=== PATIENT | female | born 1980 | race Caucasian/White ===

== ENCOUNTER → 2021-02-26 | Outpatient (CLI) | payer OTHER ==
--- NOTE | 2021-02-26 16:49 | XR ---
Right shoulder HISTORY: M25.511 PAIN IN RIGHT SHOULDER 3 views of the right shoulder Bone mineralization, joint spaces and alignment are maintained. IMPRESSION: Normal right shoulder.
== END | disposition home or self-care (01) ==
LOC: RADXRMAIN 14:37
PROVIDERS: ATTEND Family Medicine
DX: M25.511 Pain in right shoulder (principal)

== ENCOUNTER → 2021-05-16 | Outpatient (CLI) | payer OTHER ==
--- NOTE | 2021-05-16 12:50 | US ---
EXAMINATION TYPE: US pelvic complete DATE OF EXAM: 05/16/2021 COMPARISON: NONE CLINICAL HISTORY: N81.4 UTEROVAGINAL PROLAPSE, UNSPECIFIED. Pt states h/o prolapsed uterus, pt curren tly has pessary ring in place TECHNIQUE: Transabdominal (TA). Transabdominal sonographic images of the pelvis were acquired. Date of LMP: 05/09/2021 EXAM MEASUREMENTS: Uterus: 9.8 x 4.8 x 5.3 cm Endometrial Stripe: 0.8 cm Right Ovary: 2.8 x 2.5 x 2.4 cm Left Ovary: 2.2 x 1.9 x 1.9 cm 1. Uterus: Anteverted Heterogeneous 2. Endometrium: wnl 3. Right Ovary: Simple cyst= 1.9 x 1.3 x 1.7 cm 4. Left Ovary: wnl 5. Bilateral Adnexa: wnl 6. Posterior cul-de-sac: wnl IMPRESSION: Simple cyst right ovary. Uterine myometrial heterogeneity is nonspecific.
== END | disposition home or self-care (01) ==
LOC: RADUSWWP 12:16
PROVIDERS: ATTEND Obstetrics & Gynecology
DX: N83.291 Other ovarian cyst, right side (principal)
CPT/HCPCS: 76856

== ENCOUNTER → 2021-07-16 | Outpatient (CLI) | payer OTHER ==
--- NOTE | 2021-07-25 10:19 | MM ---
Reason for exam: screening (asymptomatic). History: Patient had first child at age 34. Family history of breast cancer in paternal aunt at age 70 and breast cancer in maternal grandmother at age 40. Excisional biopsy of the right breast, 2014. Physical Findings: A clinical breast exam by your physician is recommended on an annual basis and results should be correlated with mammographic findings. MG 3D Screening Mammo W/Cad Bilateral CC and MLO view(s) were taken. No prior studies available for comparison. The breast tissue is heterogeneously dense. This may lower the sensitivity of mammography. There is no discrete abnormality. ASSESSMENT: Negative, BI-RAD 1 RECOMMENDATION: Routine screening mammogram of both breasts in 1 year. Some consider bilateral ultrasound surveillance in patient with extremely dense fibroglandular tissue.
== END | disposition home or self-care (01) ==
LOC: RADMAMWWP 10:57
PROVIDERS: ATTEND Obstetrics & Gynecology
DX: Z12.31 Encounter for screening mammogram for malignant neoplasm of breast (principal); Z80.3 Family history of malignant neoplasm of breast
CPT/HCPCS: 77063; 77067

== ENCOUNTER → 2021-10-24 | Outpatient (CLI) | payer OTHER ==
[2021-10-24 18:32] LABS: Basophils # (A) 0.04 X 10*3/uL (0.00-0.10); Basophils % (A) 0.6 %; Eosinophils # (A) 0.09 X 10*3/uL (0.04-0.35); Eosinophils % (A) 1.2 %; HCT 41.7 % (37.2-46.3); HGB 13.7 g/dL (12.0-15.0); Immature Grans, Automated 0.4 %; Lymphocytes # (A) 1.96 X 10*3/uL (0.90-5.00); Lymphocytes % (A) 27.1 %; MCH 30.2 pg (27.0-32.0); MCHC 32.9 g/dL (32.0-37.0); MCV 91.9 fL (80.0-97.0); Mean Platelet Volume 12.3 fL (9.5-12.2); Monocytes # (A) 0.51 X 10*3/uL (0.20-1.00); Monocytes % (A) 7.1 %; NRBC Per 100 WBC 0 /100 WBCS (0.0-0.0); Neutrophils % (A) 63.6 %; Platelet Count 187 X 10*3/uL (140-440); RBC 4.54 X 10*6/uL (4.10-5.20); RDW 12.4 % (11.5-14.5); WBC 7.23 X 10*3/uL (4.50-10.00)
[2021-10-24 18:58] LABS: African American GFR (CKD) 98.2 (60.0-200.0); Anion Gap 11.7 mmol/L (10.00-18.00); BUN/Creat Ratio 16.78 Ratio (12.00-20.00); Blood Urea Nitrogen 14.4 mg/dL (9.0-27.0); Calcium 9.2 mg/dL (8.7-10.3); Carbon Dioxide 23.8 mmol/L (20.0-27.5); Non-African American GFR(CKD) 84.7 (60.0-200.0); Potassium 4.5 mmol/L (3.5-5.5)
== END | disposition home or self-care (01) ==
LOC: LABPAT 13:34
PROVIDERS: ATTEND Obstetrics & Gynecology
DX: Z01.812 Encounter for preprocedural laboratory examination (principal)
CPT/HCPCS: 36415; 80048; 85025

== ENCOUNTER 2021-11-03 05:48 | Observation (INO) | payer OTHER ==
[2021-10-30 13:57] VITALS: BMI 29.9
--- NOTE | 2021-11-02 16:34 | P.HPOB ---
History of Present Illness H&P Date: 11/02/21 Chief Complaint: Uterine prolapse with cystocele and rectocele This is a 41 y.o. female, 2, para 2, who presents for total vaginal hysterectomy with anterior and posterior vaginal colporrhaphy due to uterine prolapse with cystocele and rectocele. She currently uses a pessary for her prolapse and does complain of pelvic/perineal pressure. She denies incontinence or constipation. She does have irritation after intercourse. Pelvic ultrasound shows uterus measuring 9.8 x 4.8 x 5.3 cm with endometrium of 0.8 cm and small simple right ovarian cyst. OB Hx: . History of 2 vaginal deliveries. [employer] Outside Sales Representative Hx: No history of STDs. has had a vasectomy. Social Hx: . Homemaker. Review of Systems Constitutional: Denies chills, Denies fever Eyes: denies blurred vision, denies pain Ears: bilateral: decreased hearing Ears, nose, mouth and throat: Reports headache (occ), Denies sore throat Cardiovascular: Denies chest pain, Denies shortness of breath Respiratory: Denies cough Gastrointestinal: Denies abdominal pain, Denies diarrhea, Denies nausea, Denies vomiting Genitourinary: Reports dysmenorrhea, Reports pelvic pain, Reports prolapse symptoms Menstruation: Reports period heavy Musculoskeletal: Reports low back pain Integumentary: Denies pruritus, Denies rash Neurological: Denies numbness, Denies weakness Psychiatric: Reports anxiety, Reports irritability Endocrine: Denies fatigue, Denies weight change Past Medical History Past Medical History: Blood Disorder Additional Past Medical History / Comment(s): migraines., factor 5 leiden, 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 History of Any Multi-Drug Resistant Organisms: None Reported Additional Past Surgical History / Comment(s): ear tubes, right breast abscess s urgery. Past Anesthesia/Blood Transfusion Reactions: No Reported Reaction Additional Past Anesthesia/Blood Transfusion Reaction / Comment(s): daughter and family members have ponv. Past Psychological History: No Psychological Hx Reported Smoking Status: Never smoker Past Alcohol Use History: Occasional Past Drug Use History: None Reported - Past Family History Mother Family Medical History: Blood Disorder, Deep Vein Thrombosis (DVT), Pulmonary Embolus Additional Family Medical History / Comment(s): mother and mothers siblings and her father have have blood clots Medications and Allergies Home Medications Medication Instructions Recorded Confirmed Type Docusate [Colace] 200 mg PO DAILY 10/30/21 11/03/21 History Ibuprofen [Motrin Ib] 400 mg PO DIRECTED PRN 10/30/21 11/03/21 History [place]-3/Dha/Epa/Fish Oil [Fish Oil 2 cap PO DAILY 10/30/21 11/03/21 History 1,000 mg Softgel] Vitamin A Palmitate [Vitamin A-25 1,500 mcg PO DAILY 10/30/21 11/03/21 History (25,000 Units = 7500 MCG)] Vitamin B Complex 1 each PO DAILY 10/30/21 11/03/21 History Wheat Dextrin [Benefiber] 1 gm PO DAILY 10/30/21 11/03/21 History Allergies Allergy/AdvReac Type Severity Reaction Status Date / Time No Known Allergies Allergy Verified 11/03/21 06:24 Exam Osteopathic Statement: *. No significant issues noted on an osteopathic structural exam other than those noted in the History and Physical/Consult. HEENT: within normal limits Heart: regular rate and rhythm Lungs: clear to auscultation bilaterally Abdomen: soft, non-tender Pelvic: uterus anteverted, with 2nd degree prolapse, 2nd degree cystocele, and 1st degree rectocele, no adnexal masses or tenderness Extremities: Neg. Yuni's Assessment and Plan (1) Cystocele with small rectocele and uterine descent Current Visit: No Status: Acute Code(s): N81.4 - UTEROVAGINAL PROLAPSE, UNSPECIFIED SNOMED Code(s): 568333066 Plan: Proceed with total vaginal hysterectomy with anterior and posterior vaginal repair, possible total abdominal hysterectomy with bilateral salpingo- oophorectomy. I have discussed the risks, benefits, and alternative therapies for the above- mentioned procedure and for both sedation/anesthesia as well as necessary blood products administration, if indicated, as they pertain to this patient. The patient has indicated her understanding and acceptance of the risks and procedures discussed.
[2021-11-03] MEDS ORDERED: LACTATED RINGERS 1,000 ML IV ONE ×3 (06:52→09:05)
[2021-11-03] MEDS ORDERED: ONDANSETRON 4 MG/2 ML VIAL ONE (07:02)
[2021-11-03] MEDS ORDERED: SCOPOLAMINE 1 MG/72 HR PATCH TRANSDERM ONE (07:07)
[2021-11-03] MEDS ORDERED: DEXAMETHASONE SOD PHOSPHATE 4 MG/ML 1 ML VIAL IVP ONE (07:07)
[2021-11-03] MEDS ORDERED: MIDAZOLAM 2 MG/2 ML VIAL IVP ONE (07:21)
[2021-11-03] MEDS ORDERED: NEOSTIGMINE 1 MG/ML 10 ML VIAL ONE (07:29)
[2021-11-03] MEDS ORDERED: LIDOCAINE 2% INJ 20 MG/ML (2 ML VIAL) ONE (07:29)
[2021-11-03] MEDS ORDERED: GLYCOPYRROLATE 0.2 MG/ML 2 ML VIAL ONE (07:29)
[2021-11-03] MEDS ORDERED: MORPHINE SULFATE (PF) 0.3 MG/0.3 ML SYR ONE (07:29)
[2021-11-03] MEDS ORDERED: fentaNYL (PF) 50 MCG/ML 2 ML AMP ONE (07:29)
[2021-11-03] MEDS ORDERED: PROPOFOL 10 MG/ML 20 ML VIAL IV ONE (07:29)
[2021-11-03] MEDS ORDERED: MIDAZOLAM 2 MG/2 ML VIAL ONE (07:29)
[2021-11-03] MEDS ORDERED: ROCURONIUM 10 MG/ML (5 ML VIAL) IV ONE (07:29)
[2021-11-03] MEDS ORDERED: KETOROLAC 15 MG/ML 1 ML VIAL ONE (07:29)
[2021-11-03] MEDS ORDERED: HYDROcodone/APAP 7.5-325MG 1 EACH TAB PO PRN (07:42)
[2021-11-03] MEDS ORDERED: METOCLOPRAMIDE 5 MG/ML 2 ML VIAL IVP PRN (07:42)
[2021-11-03] MEDS ORDERED: HYDROcodone/APAP 5-325MG 1 EACH TAB PO PRN (07:42)
[2021-11-03] MEDS ORDERED: ONDANSETRON 4 MG/2 ML VIAL IVP PRN (07:42)
[2021-11-03] MEDS ORDERED: diphenhydrAMINE 50 MG/ML 1 ML VIAL IVP PRN (07:42)
[2021-11-03] MEDS ORDERED: SIMETHICONE 80 MG CHEWABLE PO PRN (07:42)
[2021-11-03] MEDS ORDERED: BACITRACIN ZINC 500 UNIT/GM OINT 28.4 GM TUBE TOPICAL ONE (08:01)
[2021-11-03] MEDS ORDERED: EPINEPHrine 1 MG in SODIUM CHLORIDE 0.9% 150 ML IV ONE (08:02)
--- NOTE | 2021-11-03 08:48 | P.ANPRN ---
Procedure Note - Anesthesia - Epidural/Spinal Spinal Time Out Performed: Yes Date of Procedure: 11/03/21 Procedure Start Time: : Procedure Stop Time: : Location of Patient: PreOp Indication: Acute Post-Operative Pain, Requested by Surgeon Sedation Type: Sedate with meaningful contact maintained Preparation: Sterile Prep Position: Sitting Catheter: None Needle Guage: 25 (Wh[place]acre) Injectate: Other (Duramorph 300 mcg and 25 mcg of fentanl) Narrative: After the informed consent was obtained and all the questions answered, Patient was positioned in sitting posture. The back was cleaned and draped after palpating the L3-L4 interspace. 3 mL of 1% lidocaine infiltrated into the aforementioned space. A 25-gauge Wh[place]acre needle was introduced into the space and a clear flow of CSF was obtained. No blood was aspirated. 300 g of Duramorph and 25 g fentanyl drawn up with a Filter Needle and injected into the spinal space under aseptic precautions. Needle was withdrawn and the puncture rohith with a platelet dressed with Band-Aid. Patient tolerated the procedure very well with no apparent complications noted. Blood Aspirated: No Pain Paresthesia on Injection Noted: No Events: Uneventful and Well Tolerated
--- NOTE | 2021-11-03 09:11 | P.OP ---
Date of Procedure: 11/03/21 Preoperative Diagnosis: Uterine prolapse with cystocele and rectocele Postoperative Diagnosis: Same Procedure(s) Performed: Total vaginal hysterectomy with anterior and posterior vaginal colporrhaphy Anesthesia: GETA, spinal (Duramorph intrathecal) Surgeon: Mary Mclain Process Project Engineer #1: Dalia Antoine Estimated Blood Loss (ml): 200 Pathology: other (Uterus with cervix, vaginal mucosa) Condition: stable Disposition: floor Indications for Procedure: This is a 41 y.o. female, 2, para 2, who presents for total vaginal hysterectomy with anterior and posterior vaginal colporrhaphy due to uterine prolapse with cystocele and rectocele. She currently uses a pessary for her prolapse and does complain of pelvic/perineal pressure. She denies incontinence or constipation. She does have irritation after intercourse. Pelvic ultrasound shows uterus measuring 9.8 x 4.8 x 5.3 cm with endometrium of 0.8 cm and small simple right ovarian cyst. Operative Findings: Grade 2 uterine prolapse, cystocele, and rectocele are noted. Normal tubes and ovaries are noted. Description of Procedure: The patient is taken the operating room where she is placed in the dorsal lithotomy position. She is prepped and draped in the normal sterile fashion. Next a weighted speculum was placed in the patient's vagina and a right angle retractor was used to visualize the cervix. The anterior lip of the cervix is grasped with a single-tooth tenaculum. Next the cervix was circumferentially injected with one amp of epinephrine to 150 mL of normal saline. Next the cervix was circumscribed with a scalpel. The vaginal mucosa was pushed away from the cervix with a sponge. Next the uterosacral ligaments are clamped on either side with a Irene clamp, cut with Weldon scissors, and then sutured with 0 Vicryl suture in a Irene transfixion stitch and then held on either side with a straight hemostat. Next the posterior peritoneal reflection was identified and entered sharply with Weldon scissors. The edges of the vaginal mucosa was then tagged with 0 Vicryl suture and held with a curved hemostat for identification. Next a longbilled weighted speculum was placed through the posterior peritoneal reflection. Next the cardinal ligaments were clamped on either side with Irene clamps, cut with Weldon scissors, and then sutured with 0 Vicryl suture in Irene transfixion stitches and cut. Next the vesicouterine peritoneum reflection is identified and entered sharply with Metzenbaum scissors. A right angle bladder retractor is then used to retract the bladder. The uterine arteries are clamped on either side with Irene clamps, cut with Weldon scissors, and then sutured with 0 Vicryl suture in Irene transfixion stitches. The round ligament is also clamped on either side with a Irene clamp, cut with Weldon scissors, and sutured with 0 Vicryl suture in Irene transfixion stitches. Next the uterine ovarian ligament and tube were clamped on either side with a Irene clamp, cut with Weldon scissors, and then sutured with 0 Vicryl suture in a [id number] stitch, flashed, and then free tied with another suture of 0 Vicryl suture. These pedicles were held with a straight Beata for identification. The uterus is removed from the field. Excellent hemostasis is noted. Next the peritoneum is closed with 0 Vicryl suture in a pursestring fashion incorporating all the held ligaments. Both tubes and ovaries are visualized prior to closing the peritoneum and appeared normal. Next the uterine ovarian ligaments are tied together in the middle and cut. Next attention was turned to the cystocele repair. The edges of the vaginal mucosa are held with 2 Allis clamps. Next injection of the same epinephrine solution is injected underneath the mucosa upwards towards the urethra. Metzenbaum scissors were used to dissect underneath the vaginal mucosa and cut along the way up to just below the urethra. Sharp and blunt dissection are used to dissect the bladder away from the vaginal mucosa. Once the bladder is freed, the cystocele is reduced with 0 Vicryl suture in [id number] stitches on either side of the cystocele. Next the edges of the vaginal mucosa are trimmed with Metzenbaum scissors. Next the vaginal mucosa is sutured with 0 Vicryl suture in a running locked fashion incorporating the vaginal cuff. The uterosacral ligaments were also tied together in the midline prior to completely closing the vaginal cuff. Excellent hemostasis is noted. The Waldron catheter is inserted and clear urine is noted. Next attention is turned to the posterior repair. The 4 and 8 o'clock position are grasped with Allis clamps on either side. Injection of epinephrine solution is injected underneath the vaginal mucosa upwards towards the cuff. Next regular use of tissue is removed with the scalpel between the 2 Allis clamps next Metzenbaum scissors are used to dissect underneath the vaginal mucosa upwards towards the apex of the cuff. The edges of the vaginal mucosa were held with Allis clamps and dissected away from the rectocele with sharp and blunt dissection. Next the rectocele is reduced with 0 Vicryl suture in interrupted [id number] stitches. The edges of the vaginal mucosa are then trimmed with Metzenbaum scissors. Next the vaginal mucosa is sutured with 0 Vicryl in a running locked fashion up to the introitus and then brought underneath the skin and whipstitched along the muscle and then brought to the apex of the skin on the perineum and then continued in a subcuticular fashion up to the introitus and then tied. Good hemostasis is noted. Next the vagina is packed with one- inch iodoform gauze with bacitracin ointment. All sponge and needle counts are correct and the patient is then taken to recovery room in stable condition.
[2021-11-03] MEDS ORDERED: ACETAMINOPHEN IV (For NPO) 1,000 MG/100 ML VIAL IVPB ONE (09:55)
[2021-11-03] MEDS ORDERED: HYDROmorphone 0.5 MG/0.5 ML SYRINGE IVP PRN (09:55)
[2021-11-03] MEDS ORDERED: NALOXONE 0.4 MG/ML 1 ML VIAL IVP STA (09:56)
[2021-11-03] MEDS ORDERED: NALOXONE 0.4 MG/ML 1 ML VIAL IVP PRN (09:59)
[2021-11-03] MEDS: KETOROLAC 15 MG/ML 1 ML VIAL IVP PRN (11:37)
[2021-11-03] MEDS: LACTATED RINGERS 1,000 ML IV SCH (14:13)
[2021-11-03] MEDS: SENNOSIDES-DOCUSATE SODIUM 1 EACH TAB PO SCH ×2 (14:33→20:16)
[2021-11-03] MEDS ORDERED: ZOLPIDEM 5 MG TAB PO PRN (21:00)
[2021-11-04] MEDS: LACTATED RINGERS 1,000 ML IV SCH ×3 (00:21→16:12)
[2021-11-04] MEDS: KETOROLAC 15 MG/ML 1 ML VIAL IVP PRN (04:35)
[2021-11-04 06:45] LABS: Basophils % (A) 0 %; Eosinophils % (A) 1 %; HCT 26.2 % (34.0-46.0); Lymphocytes # (A) 1.2 k/uL (1.0-4.8); Lymphocytes % (A) 22 %; MCH 31.7 pg (25.0-35.0); MCHC 34.2 g/dL (31.0-37.0); MCV 92.6 fL (80.0-100.0); Mean Platelet Volume 8.9; Monocytes # (A) 0.4 k/uL (0-1.0); Monocytes % (A) 7 %; Neutrophils # (A) 3.6 k/uL (1.3-7.7); Neutrophils % (A) 69 %; Platelet Count 150 k/uL (150-450); RBC 2.83 m/uL (3.80-5.40); RDW 12.5 % (11.5-15.5); WBC 5.3 k/uL (3.8-10.6)
--- NOTE | 2021-11-04 07:47 | P.PN ---
Progress Note - Text Progress Note Date: 11/04/21 Postop day 1 from hysterectomy with intrathecal morphine given for postop pain management. Patient is doing well. Pain is well controlled. On visual analog scale 4/10 Mild itching present No nausea or vomiting reported. No Headache or weakness and numbness in the legs. No complications from spinal morphine.
--- NOTE | 2021-11-04 08:44 | P.PN ---
Subjective Progress Note Date: 11/04/21 Principal diagnosis: Status post total vaginal hysterectomy with anterior and posterior vaginal repair postoperative day #1 Patient is complaining of some dizziness with sitting were trying to stand. She denies any vomiting. She did have a little bit of nausea that has resolved. She has not tried ambulate yet. Her catheter was just removed this morning and she has not urinated yet. She did state she was having some right lower rib pain and some shoulder pain but the shoulder pain has resolved. She is passing flatus but no bowel movement yet. Objective - Vital Signs Vital signs: Vital Signs Temp 98.5 F 11/04/21 04:29 Pulse 61 11/04/21 04:29 Resp 17 11/04/21 04:29 BP 94/59 11/04/21 04:29 Pulse Ox 98 11/04/21 04:29 FiO2 Intake & Output 11/03/21 11/04/21 11/04/21 18:59 06:59 18:59 Intake Total 1451 Output Total 800 2000 Balance 651 -2000 Intake: IV 1451 Output: Urine 550 2000 Uretheral (Waldron) 300 1600 Estimated Blood Loss 250 Other: Voiding Method Indwelling Catheter - Constitutional General appearance: Present: no acute distress - Respiratory Respiratory: bilateral: CTA - Cardiovascular Rhythm: regular - Gastrointestinal General gastrointestinal: Present: normal bowel sounds - Genitourinary Genitourinary Comment(s): Beti-pad shows scant serosanguineous discharge, no clots - Labs CBC & Chem 7: 11/04/21 05:59 Labs: Abnormal Lab Results - Last 24 Hours (Table) 11/04/21 Range/Units 05:59 RBC 2.83 L (3.80-5.40) m/uL Hgb 9.0 L (11.4-16.0) gm/dL Hct 26.2 L (34.0-46.0) % Assessment and Plan Assessment: Status post total vaginal hysterectomy with anterior and posterior vaginal repair postoperative day #1 (1) Cystocele with small rectocele and uterine descent Current Visit: No Status: Acute Code(s): N81.4 - UTEROVAGINAL PROLAPSE, UNSPECIFIED SNOMED Code(s): 942739907 Plan: Will advance diet to regular diet. We will ambulate with assistance to the restroom when she feels like she has to go. Will monitor through the day today. I believe some of her dizziness is still from anesthesia since her pulse rate is normal although her blood pressure is lower. We'll repeat CBC tomorrow morning.
[2021-11-04] MEDS: SENNOSIDES-DOCUSATE SODIUM 1 EACH TAB PO SCH ×3 (09:55→19:47)
[2021-11-04] MEDS: IBUPROFEN 600 MG TAB PO PRN (12:12)
[2021-11-04] MEDS: ACETAMINOPHEN TAB 325 MG TAB PO PRN (21:43)
[2021-11-05] MEDS: IBUPROFEN 600 MG TAB PO PRN ×2 (03:00→10:57)
[2021-11-05 06:46] LABS: Basophils % (A) 0 %; Eosinophils # (A) 0.1 k/uL (0-0.7); Eosinophils % (A) 2 %; HCT 24.3 % (34.0-46.0); HGB 8.3 gm/dL (11.4-16.0); Lymphocytes % (A) 26 %; MCH 32.5 pg (25.0-35.0); MCHC 34.2 g/dL (31.0-37.0); Mean Platelet Volume 9.1; Monocytes # (A) 0.2 k/uL (0-1.0); Monocytes % (A) 6 %; Neutrophils # (A) 2.5 k/uL (1.3-7.7); Neutrophils % (A) 65 %; Platelet Count 136 k/uL (150-450); RBC 2.56 m/uL (3.80-5.40); RDW 13.1 % (11.5-15.5); WBC 3.9 k/uL (3.8-10.6)
[2021-11-05] MEDS: ACETAMINOPHEN TAB 325 MG TAB PO PRN (08:07)
[2021-11-05] MEDS: LACTATED RINGERS 1,000 ML IV SCH (08:18)
[2021-11-05] MEDS: SENNOSIDES-DOCUSATE SODIUM 1 EACH TAB PO SCH (08:19)
[2021-11-05 08:28] VITALS: BP 97/61; PULSE 62; RESP 16; TEMP 98.4
--- NOTE | 2021-11-05 08:59 | P.DS ---
Providers Date of admission: 11/04/21 13:25 Expected date of discharge: 11/05/21 Attending physician: Mary Mclain Primary care physician: Ayaz Ware - Discharge Diagnosis(es) (1) Cystocele with small rectocele and uterine descent Current Visit: No Status: Acute Hospital Course: This is a 41-year-old female 2 para 2 who underwent a total vaginal hysterectomy with anterior and posterior vaginal colporrhaphy on 11/03/2021. Postoperatively she did have some dizziness and bloating on postoperative day #1. This did gradually improve and she has had 2 bowel movements through the night. Her hemoglobin did drop to 9 on postoperative day #1 and 8.3 on postoperative day #2. Her starting hemoglobin preoperatively was approximately 13. Her pain is well-controlled with ibuprofen. Bleeding is minimal. She is having some mild cramping in her lower abdomen that is controlled with her pain medication. Vital signs are stable. Abdomen is soft with positive bowel sounds 4. Beti-pad shows scant serosanguineous discharge. Extremities show negative Homans. Impression is status post total vaginal hysterectomy with anterior and posterior vaginal colporrhaphy postoperative day #2. Plan is to discharge home today. Routine post operative instructions are given. She is advised to follow up in the office in 1 week for a postoperative check. She is advised to call the office if she has any further questions or concerns prior to her postoperative appointment. She will be given a prescription for ibuprofen. She is advised to take her iron a couple times a week and continue with her stool softeners at home. Procedures: Total vaginal hysterectomy with anterior and posterior vaginal colporrhaphy on 11/03/2021 Patient Condition at Discharge: Stable Plan - Discharge Summary New Discharge Prescriptions: New Ibuprofen [Motrin] 600 mg PO Q6HR PRN #60 tab PRN Reason: Mild Discomfort Continue Vitamin A Palmitate [Vitamin A-25 (25,000 Units = 7500 MCG)] 1,500 mcg PO DAILY Wheat Dextrin [Benefiber] 1 gm PO DAILY Vitamin B Complex 1 each PO DAILY [place]-3/Dha/Epa/Fish Oil [Fish Oil 1,000 mg Softgel] 2 cap PO DAILY No Action Ibuprofen [Motrin Ib] 400 mg PO DIRECTED PRN PRN Reason: Pain Docusate [Colace] 200 mg PO DAILY Discharge Medication List Docusate [Colace] 200 mg PO DAILY 10/30/21 [History] Ibuprofen [Motrin Ib] 400 mg PO DIRECTED PRN 10/30/21 [History] [place]-3/Dha/Epa/Fish Oil [Fish Oil 1,000 mg Softgel] 2 cap PO DAILY 10/30/21 [History] Vitamin A Palmitate [Vitamin A-25 (25,000 Units = 7500 MCG)] 1,500 mcg PO DAILY 10/30/21 [History] Vitamin B Complex 1 each PO DAILY 10/30/21 [History] Wheat Dextrin [Benefiber] 1 gm PO DAILY 10/30/21 [History] Ibuprofen [Motrin] 600 mg PO Q6HR PRN #60 tab 11/05/21 [Rx] Follow up Appointment(s)/Referral(s): Mary Mclain DO [Doctor of Osteopathic Medicine] - 1 Week Activity/Diet/Wound Care/Special Instructions: Activity as tolerated. No heavy lifting. May shower, but no tub baths. May drive when reaction time is normal. Discharge Disposition: HOME SELF-CARE
== END 2021-11-05 12:05 | disposition home or self-care (01) ==
LOC: OR 05:48 → 4FBP 09:06 → OR 11-04 13:25 → 4FBP 11-04 13:25
PROVIDERS: ADMIT Obstetrics & Gynecology; ATTEND Obstetrics & Gynecology
DX: N81.4 Uterovaginal prolapse, unspecified (principal); N80.0 Endometriosis of uterus; G43.909 Migraine, unspecified, not intractable, without status migrainosus; D68.51 Activated protein C resistance; H35.52 Pigmentary retinal dystrophy; Z82.49 Family history of ischemic heart disease and other diseases of the circulatory system; N83.291 Other ovarian cyst, right side; Z97.4 Presence of external hearing-aid
CPT/HCPCS: 81025; 86900; 86901; 85025 ×2; 86850; 88307; 88302; 58260; 57240; G0378 ×2; J2250; J0171; J1100; J2710; J2765; J0690; J2405; J2274; J3010; J0131; J1885 ×2; J2704; J2001

== ENCOUNTER → 2021-12-29 | Outpatient (CLI) | payer OTHER ==
[2021-12-30 01:31] LABS: African American GFR (CKD) 105.6 (60.0-200.0); Anion Gap 10.9 mmol/L (10.00-18.00); BUN/Creat Ratio 14.36 Ratio (12.00-20.00); Blood Urea Nitrogen 11.6 mg/dL (9.0-27.0); Calcium 9.1 mg/dL (8.7-10.3); Carbon Dioxide 25.5 mmol/L (20.0-27.5); Non-African American GFR(CKD) 91.1 (60.0-200.0)
== END | disposition home or self-care (01) ==
LOC: LABWHC1 14:16
PROVIDERS: ATTEND Dermatology
DX: D22.5 Melanocytic nevi of trunk (principal); D23.5 Other benign neoplasm of skin of trunk; B07.8 Other viral warts; L70.0 Acne vulgaris; L82.1 Other seborrheic keratosis; L85.8 Other specified epidermal thickening
CPT/HCPCS: 36415; 80048

== ENCOUNTER → 2022-08-12 | Outpatient (CLI) | payer OTHER ==
--- NOTE | 2022-08-13 06:48 | MM ---
Reason for Exam: Screening (asymptomatic). Last mammogram was performed 1 year(s) and 1 month(s) ago. Patient History: Menarche at age 13. First Full-Term at age 34. Late child-bearing (after 30). Hysterectomy at age 41. 2015, Excisional Biopsy on the Right side. Maternal grandmother had breast cancer, age 40. Paternal aunt had breast cancer, age 70. Risk Values: Orquidea 5 year model risk: 1.3%. NCI Lifetime model risk: 16.3%. Prior Study Comparison: 07/16/2021 Bilateral Screening Mammogram, [facility]. Tissue Density: The breast tissue is heterogeneously dense. This may lower the sensitivity of mammography. Findings: Analyzed By CAD. A few small benign-appearing round calcifications throughout the left breast are redemonstrated. There is no suspicious group of microcalcifications or new distortion in either breast. Overall Assessment: Negative, BI-RAD 1 Management: Screening Mammogram of both breasts in 1 year. Some advise bilateral breast ultrasound surveillance in patients with background dense tissue. Patient should continue monthly self-breast exams. A clinical breast exam by your physician is recommended on an annual basis. This exam should not preclude additional follow-up of suspicious palpable abnormalities. Note on Orquidea scores and lifetime risk: 1. A Orquidea score greater than 3% is considered moderate risk. If this is the case, consider specialist referral to assess eligibility for a risk reducing agent. 2. If overall lifetime risk for the development of breast cancer is 20% or higher, the patient may qualify for future screening with alternating mammogram and breast MRI. Electronically signed and approved by: Zachery De La Rosa M.D.
== END | disposition home or self-care (01) ==
LOC: RADMAMWWP 11:21
PROVIDERS: ATTEND Family Medicine
DX: Z12.31 Encounter for screening mammogram for malignant neoplasm of breast (principal); Z80.3 Family history of malignant neoplasm of breast
CPT/HCPCS: 77063; 77067